=== PATIENT | male | born 1970 | race African-American/Black ===

== ENCOUNTER 2016-11-23 11:05 | Emergency (ER) | payer SELFPAY ==
[~2016-11-23] VITALS: Ht 188 cm; Wt 108.9 kg
[2016-11-23 11:12] VITALS: BP 122/89
[2016-11-23] MEDS ORDERED: MULTIVITAMIN-12 10 ML, THIAMINE 100 MG, MAGNESIUM SULFATE 50% 2,000 MG, FOLIC ACID 5 MG... IV ONE ×5 (11:15)
--- NOTE | 2016-11-23 11:30 | NUR ---
PT BIBA FOR EVALUATION OF EDEMA TO [facility]. HX DM, NON-COMPLIANT W/MEDICATION. BLOOD SUGAR UPON ARRIVAL TO ER 98. DENIES N/V/D; SKIN IS PINK/WARM/DRY; AAOX4 WITH EVEN AND STEADY GAIT; LUNGS CLEAR BL; HR EVEN AND REGULAR; PT DENIES ANY FEVER, CP, SOB, OR COUGH AT THIS TIME; PATIENT STATES PAIN OF 8/10 AT THIS TIME; VSS; PATIENT POSITIONED FOR COMFORT; HOB ELEVATED; BEDRAILS UP X2; BED DOWN. ER MD MADE AWARE OF PT STATUS.
[2016-11-23] MEDS ORDERED: MULTIVITAMIN-12 10 ML, THIAMINE 100 MG, MAGNESIUM SULFATE 50% 2,000 MG, FOLIC ACID 5 MG... IV SCH ×5 (11:50)
--- NOTE | 2016-11-23 11:50 | NUR ---
ANIRUDH PT TAKEN OFF THE UNIT VIA GURNEY FOR CT BY SUDHEER LARIOS
[2016-11-23] MEDS ORDERED: LIDOCAINE/PRILOCAINE 2.5% 30 GM TUBE TP ONE (11:55)
--- NOTE | 2016-11-23 11:55 | NUR ---
PT REFUSES CT SCAN, REFUSES IV INSERTION, DR CURRIE NOTIFIED
[2016-11-23 11:57] LABS: BASOPHILS # (AUTO) 0.1 K/uL (0.00-0.22); BASOPHILS % (AUTO) 2.9 % (0.0-2.0); EOSINOPHILS # (AUTO) 0.1 K/uL (0-0.4); EOSINOPHILS % (AUTO) 1.7 % (0.0-4.0); HEMATOCRIT 38.5 % (36-52); HEMOGLOBIN 12.1 g/dL (12.0-18.0); LYMPHOCYTES # (AUTO) 0.8 K/uL (2.0-11.5); LYMPHOCYTES % (AUTO) 18.4 % (20.5-51.1); MEAN CORPUSCULAR HEMOGLOBIN 26 pg (27-31); MEAN CORPUSCULAR HGB CONC 32 g/dL (33-37); MEAN CORPUSCULAR VOLUME 83 fL (80-94); MONOCYTES # (AUTO) 0.4 K/uL (0.8-1.0); MONOCYTES % (AUTO) 10.2 % (1.7-9.3); NEUTROPHILS % (AUTO) 66.8 % (42.2-75.2); PLATELET COUNT (AUTO) 383 K/uL (140-450); RED BLOOD CELL COUNT(AUTO) 4.65 MIL/uL (4.20-6.10); RED CELL DISTRIBUTION WIDTH 17.8 % (11.6-13.7); WHITE BLOOD COUNT (AUTO) 4.4 K/uL (4.8-10.8)
[2016-11-23 12:02] VITALS: BP 131/91
--- NOTE | 2016-11-23 12:05 | NUR ---
Patient does not wish to proceed with medical care recommended by DR CURRIE. Patient given information related to possible complications, up to and including , which could occur as a result of leaving hospital at this time. Patient verbalizes understanding of risks involved leaving against medical advice. Patient has signed AMA form. GIVEN PRESCRIPTION FOLIC ACID, THIAMINE HYDROCHLORIDE, MULTIVITAMIN
[2016-11-23 12:16] LABS: INR 1.2 (0.8-1.2); PARTIAL THROMBOPLASTIN TIME 27.5 secs (22-35.6); PROTHROMBIN TIME 12.5 secs (10.8-13.4)
[2016-11-23 12:20] LABS: ALBUMIN 2.4 g/dL (3.4-5.0); ANION GAP 12.9 (8-16); CALCIUM 8.1 mg/dL (8.5-10.1); CARBON DIOXIDE 27.4 mmol/L (21-32); POTASSIUM 3.3 mmol/L (3.5-5.1); TOTAL BILIRUBIN 0.9 mg/dL (0.0-1.0); TOTAL PROTEIN, SERUM 7.2 g/dL (6.4-8.2)
== END 2016-11-23 12:05 | disposition left against medical advice (07) ==
LOC: MED 11:05
CPT/HCPCS: 36415; 80053; 82140; 82948; 83880; 84484; 85025; 85610; 85730; 93005; 99284; 99285; A9153; J3411; J3475; J3490; J7030